=== PATIENT | female | born 1960 | race Caucasian/White ===

== ENCOUNTER 2024-09-05 09:25 | Outpatient (CLI) | payer MEDICARE, BC | END 2024-09-05 23:59 | disposition home or self-care (01) | LOC: RAD 09:25 | PROVIDERS: ATTEND Podiatrist Foot & Ankle Surgery | DX: M19.071 Primary osteoarthritis, right ankle and foot (principal); M25.471 Effusion, right ankle; Z72.0 Tobacco use; Z96.651 Presence of right artificial knee joint | CPT/HCPCS: 73700; 73721 ==